=== PATIENT | male | born 1960 | race Two or more races ===

== ENCOUNTER 2017-11-10 04:33 | Emergency (ER) | payer OTHER ==
[~2017-11-10] VITALS: Ht 167.6 cm; Wt 68.0 kg
--- NOTE | 2017-11-10 04:46 | Emergency Room Report ---
History of Present Illness General Chief Complaint: Medical Clearance Source: Patient Present Illness HPI Pt. is here for medical clearance prior to retirement. He c/o burning to face related to having goatee (gandhi) dyed 1.5 days ago. He has had same situation in the past. He took Benadryl with relief but it has worn off. No other issues. No trauma, no fever, no shortness of breath, no chest pain, no nausea, no vomiting, no diarrhea, no abdominal pain, no syncope, LOC, dizziness, lightheadedness, headache. Allergies: Coded Allergies: No Known Allergies (Unverified , 11/10/17) Nursing Documentation-[facility] Past Medical History: No History, Except For Review of Systems Constitutional: Denies: fever Eye: Denies: acuity changes Respiratory: Denies: cough, shortness of breath Cardiovascular: Denies: chest pain Gastrointestinal: Denies: nausea, vomiting Skin: Denies: rash Neurological: Denies: headache Physical Exam Vital Signs Date Time Temp Pulse Resp B/P (MAP) Pulse Ox O2 Delivery O2 Flow Rate FiO2 11/10/17 04:27 98.0 92 16 165/90 98 Room Air 98.1 General Appearance: well appearing, no apparent distress Head: normocephalic, atraumatic ENT: hearing grossly normal, normal voice Neck: full range of motion, supple Respiratory: no respiratory distress, speaking full sentences Musculoskeletal: no calf tenderness Neurologic: alert, normal gait Psychiatric: mood/affect normal Skin: no rash, other - facial skin near gandhi is irritated, mildly erythematous Medical Decision Making Diagnostic Impression: Primary Impression: Allergic dermatitis Last Vital Signs Date Time Temp Pulse Resp B/P (MAP) Pulse Ox O2 Delivery O2 Flow Rate FiO2 11/10/17 04:27 98.0 92 16 165/90 98 Room Air 98.1 Disposition: D/C TO LAW ENFORCEMENT IN [facility] Patient Instructions: Food Allergy, [id number] Kike Li M.D. Nov 10, 2017 04:46
[2017-11-10 04:48] VITALS: BP 158/85
[2017-11-10 05:10] VITALS: BP 158/85
== END 2017-11-10 05:15 ==
LOC: EDBD 04:33 → EMR 05:15
DX: L23.9 Allergic contact dermatitis, unspecified cause (principal)
CPT/HCPCS: 99283